=== PATIENT | male | born 1955 | race Caucasian/White ===

== ENCOUNTER 2018-10-05 07:25 | Emergency (ER) | payer OTHER ==
[~2018-10-05] VITALS: Ht 172.7 cm; Wt 98.4 kg
[~2018-10-05 07:25] MED LIST: MECL12.574 PO
[2018-10-05 07:28] VITALS: BP 207/94; PULSE 54; RESP 18; Ht 172.7 cm; Wt 98.4 kg
[2018-10-05] MEDS ORDERED: ONDANSETRON 4 MG INJ IV STA (07:42)
[2018-10-05] MEDS ORDERED: SOD CHLORIDE 0.9% 1,000 ML IV STA (07:42)
--- NOTE | 2018-10-05 07:58 | ERD ---
ER Documentation Chief Complaint Chief Complaint dizziness x2days HPI This is a 63-year-old male with a past medical history of hypertension the presents to the emergency department complaining of dizziness. The patient indicated the dizziness began 48 hours ago. It initially started when he awoke 2 days ago. He stated the dizziness was described as a spinning sensation as though the room was moving around him. I made him feel very unsteady in his gait. It was worse when he was standing or ambulatory and better when he lies supine with his eyes closed. This lasted for several hours and then spontaneously resolved and got better throughout the day. The patient states however when he awoke this morning the dizziness and vertigo returned. He denies any tinnitus. He has had no fevers or shaking no chills. He states he has a small bandlike headache. This is not the worst headache of his life. He states he is never had any similar symptoms in the past. He denies any recent travel no shortness of breath. He has no chest pain. He denies any neck pain. ROS All systems reviewed and are negative except as per history of present illness. Allergies Allergies: Coded Allergies: No Known Allergy (Unverified , 10/05/18) Physical Exam Vitals Vital Signs Date Temp Pulse Resp B/P (MAP) Pulse Ox O2 O2 Flow FiO2 Time Delivery Rate 10/05/18 97.7 54 18 207/94 99 07:28 (131) Physical Exam Constitutional:Well-developed. Well-nourished. HEENT:Normocephalic. Atraumatic.Pupils were equal round reactive to light. Moist mucous membranes.No tonsillar exudates. Neck: No nuchal rigidity. No lymphadenopathy. No posterior cervical spine tenderness or step-offs. Respiratory: Not using accessory muscles of respiration.Lungs were clear to auscultation bilaterally. No rhonchi. No rales. No wheezing. Cardiovascular: Regular rate regular rhythm.No murmurs. No rubs were appreciated.S1, S2 normal. Distal pulses are palpable 2+ bilaterally. GI: Abdomen was soft. Nontender. Non Distended. No pulsatile abdominal masses or bruits. No rebound. No guarding. Bowel sounds were present and normal. Muscle skeletal: Full range of motion of both the upper and lower extremities bilaterally.Normal muscle tone.No assymetrical calf tenderness or swelling. Skin: No petechia, no purpura. No lesions on the palms or the soles of the feet. No maculopapular rash. NEURO: Patient was alert, awake, orientated x3.No facial droop. Gait observed and normal with no ataxia.Speech had regular rate and rhythm. No focal neurological deficits. Peripheral fatigable nystagmus Results 24 hrs Current Medications Medications Dose Sig/Yasmin Start Time Status Last (Trade) Ordered Route PRN Stop Time Admin Dose Reason Admin Sodium 1,000 ml @ Q1H STAT 10/05/18 Chloride 1,000 mls/hr IV 07:42 10/05/18 08:41 Ondansetron 4 mg ONCE STAT 10/05/18 DC HCl (Zofran IV 07:42 10/05/18 Inj) 07:49 Diazepam 2.5 mg ONCE ONCE 10/05/18 (Valium) IV 08:00 10/05/18 08:01 Procedures/MDM This patient was seen and evaluated by myself. The patient presented to the emergency department complaining of dizziness. My differential diagnosis included but was not limited to hypovolemia, myocardial infarction, pulmonary embolism, hypoglycemia, hypoxia, anemia, vasovagal episode, hypothyroidism, anxiety, peripheral or central vertigo. The patient was placed on a lunchroom monitor, continuous pulse oximetry and IV access established by nursing staff. The patient was given intravenous fluids, Zofran and Antivert. His symptoms mildly improved and therefore he was given IV Valium. I obtained a 12-lead EKG tracing to rule for atypical myocardial fraction. 12 Lead EKG tracing ordered and reviewed by myself showed: Sinus bradycardia 55 bpm and no arrhythmia. TN interval normal. QRS duration normal. No ST segment elevation No ST segment depression. No changes consistent with acute ischemia. Given that the patient had a mild headache I did obtain a CT scan the patient's head. This is reviewed by the radiologist myself there is no intracerebral hemorrhage mass-effect or midline shift. Patient had no severe electrolyte abnormalities. No leukocytosis or signs of an infectious process. I did feel symptoms were likely result of peripheral vertigo. He will be sent home with a prescription of Antivert. The patient was discharged home in fair condition. They were instructed to return to the emergency department at any time if there was any worsening of their condition. The patient stated they would follow up with their PCP in the next 24-48 hours to initiate a suitable medication regimen under the care of their PCP as well as to allow their PCP to monitor any drug reactions. The patient was discharged home with prescriptions after they gave informed consent to the new medication. They were also fully informed by myself on the adverse effects and adverse drug interactions in order to provide adequate safeguards to prevent possible adverse reactions to medications. Departure Diagnosis: Primary Impression: Vertigo Condition: ERIC Cook MD Oct 05, 2018 07:58
[2018-10-05] MEDS ORDERED: MECLIZINE 12.5 MG TAB PO ONE (08:00)
[2018-10-05] MEDS ORDERED: DIAZEPAM 5 MG/ML SYG IV ONE (08:00)
== END 2018-10-05 10:20 | disposition home or self-care (01) ==
LOC: E/R 07:25
DX: R42 Dizziness and giddiness (principal); I10 Essential (primary) hypertension
CPT/HCPCS: 70450; 80053; 84484; 85025; 85610; 85730; 93005; 96374; 99285; J2405; J7030; J3360